=== PATIENT | male | born 1975 ===

== ENCOUNTER → 2017-06-18 | Outpatient (CLI) | payer OTHER ==
[~2017-06-18] MED LIST: IOHEXOL 300 MG/ML 100ML BOTTLE IJ ONE
[2017-06-18 13:05] LABS: BUN/Creatinine Ratio 14.9; Calcium 9.1 mg/dL (8.5-10.1); Potassium 4.1 mmol/L (3.5-5.1)
== END | disposition home or self-care (01) ==
LOC: CT 12:14
DX: J32.4 Chronic pansinusitis (principal); R56.9 Unspecified convulsions
CPT/HCPCS: 36415; 70450; 80048; Q9967